=== PATIENT | female | born 1945 | race African-American/Black ===

== ENCOUNTER → 2018-10-08 | Day surgery (SDC) | payer MEDICARE, OTHER ==
[~2018-10-08] MED LIST: LIDOCAINE 1% INJ-PF (10 MG/ML) 30 ML SDV ONE
--- NOTE | 2018-10-08 13:21 | RADIOLOGY REPORT (SQ) ---
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 TECHNIQUE: The procedure was discussed with the patient and written informed consent obtained. A ti meout was performed to confirm the procedure and patient's identity. The skin of the neck was preppe d and draped in sterile fashion and 0.5 mL of 1% lidocaine administered for local anesthesia. Under sonographic guidance, fine needle aspiration biopsy was performed of the mass in the right lobe of th e thyroid. Two separate aspirations were performed. Cytology tack was present to accept the specimens, and deem ed the material from the 2 aspirates adequate for diagnosis. Hemostasis was obtained with direct man ual compression. There were no immediate complications. LIMITATIONS: None. FINDINGS: PATHOLOGY: Pending. IMPRESSION: ULTRASOUND-GUIDED BIOPSY PERFORMED OF A MASS IN THE RIGHT LOBE OF THE THYROID. PATHOLOG Y PENDING AT THE TIME OF DICTATION. COMMENT: Patient medication list reviewed: Yes- Quality ID# [id number]:Eligible professional attests to doc umenting in the medical record they obtained, updated, or reviewed the patient's current medications. TECHNICAL DOCUMENTATION: JOB ID: [id number] Feedback- All Rights Reserved Reading location - IP/workstation name: [id number]
== END ==
LOC: RAD 10:26
PROVIDERS: ATTEND Otolaryngology
DX: E04.1 Nontoxic single thyroid nodule (principal)
CPT/HCPCS: 88173 ×2; 60100; J3490